=== PATIENT | male | born 1990 | race Caucasian/White ===

== ENCOUNTER 2019-04-18 08:26 | Emergency (ER) | payer SELFPAY ==
[~2019-04-18] VITALS: Ht 175.3 cm; Wt 104.6 kg
[~2019-04-18 08:26] MED LIST: HYDR-4011 PO; MELO7.5T38 PO
[2019-04-18 08:29] VITALS: Ht 175.3 cm; Wt 104.6 kg
[2019-04-18] MEDS ORDERED: ONDANSETRON 4 MG INJ IV STA (09:14)
[2019-04-18] MEDS ORDERED: FAMOTIDINE 20 MG INJ IV STA (09:14)
[2019-04-18] MEDS ORDERED: morphine 2 MG INJ IV STA ×2 (09:14→10:24)
[2019-04-18] MEDS ORDERED: SOD CHLORIDE 0.9% 1,000 ML IV STA (09:14)
[2019-04-18] MEDS ORDERED: HYDROmorphONE 0.5 MG/0.5 ML SYG IV STA ×2 (11:32→13:47)
[2019-04-18] MEDS ORDERED: METOCLOPRAMIDE 10 MG INJ IV ONE (12:00)
[2019-04-18] MEDS ORDERED: SOD CHLORIDE 0.9% 100 ML ONE (12:34)
[2019-04-18] MEDS ORDERED: IOHEXOL 300MG/ML 150 ML BTL ONE (12:34)
[2019-04-18] MEDS ORDERED: KETOROLAC 15 MG INJ IV STA (14:39)
[2019-04-18 15:26] VITALS: BP 119/69; PULSE 75; RESP 18
== END 2019-04-18 15:28 | disposition home or self-care (01) ==
LOC: E/R 08:26 → FTE 15:28
DX: N20.0 Calculus of kidney (principal)
CPT/HCPCS: 36415; 74177; 76700; 80053; 81001; 82962; 83690; 85025; 96374; 96375; 96376; 99285; J1170; J1885; J2270; J2405; J2765; J7030; Q9967

== ENCOUNTER 2019-05-18 07:28 | Observation (INO) | payer MEDICAID ==
[~2019-05-18] VITALS: Ht 188 cm; Wt 103.3 kg
[~2019-05-18 07:28] MED LIST changes: +ACET650S13 PR; +CARAS GTB; +CIPR500T4 PO; +METR-121 PO; +PANT40TA4 PO; +UDMYL PO
[2019-05-18 07:35] VITALS: Ht 188 cm; Wt 103.3 kg
[2019-05-18] MEDS ORDERED: METOCLOPRAMIDE 10 MG INJ IV STA (07:46)
[2019-05-18] MEDS ORDERED: SOD CHLORIDE 0.9% 1,000 ML IV STA (07:46)
[2019-05-18] MEDS ORDERED: KETOROLAC 30 MG INJ IV STA (07:46)
[2019-05-18] MEDS ORDERED: ONDANSETRON 4 MG INJ IV STA ×2 (08:20→09:34)
[2019-05-18] MEDS ORDERED: morphine 2 MG INJ IV STA (08:36)
[2019-05-18] MEDS ORDERED: KETOROLAC 15 MG INJ IV STA (10:16)
[2019-05-18] MEDS ORDERED: DOCUSATE SODIUM 100 MG CAP PO PRN (11:30)
[2019-05-18] MEDS ORDERED: NACL 0.9% 3 ML SYG IV SCH (11:30)
[2019-05-18] MEDS ORDERED: BISACODYL (EC) 5 MG TAB PO PRN (11:30)
[2019-05-18] MEDS ORDERED: ACETAMINOPHEN 650 MG SUPP PR PRN (11:30)
[2019-05-18] MEDS ORDERED: ONDANSETRON 4 MG INJ IV PRN ×2 (11:30→16:30)
[2019-05-18] MEDS ORDERED: MAGNESIUM HYDROXIDE 30ML CUP PO PRN (11:30)
[2019-05-18] MEDS ORDERED: ACETAMINOPHEN 325 MG TAB PO PRN (11:30)
[2019-05-18] MEDS ORDERED: morphine 2 MG INJ IV PRN (11:30)
[2019-05-18] MEDS: SOD CHLORIDE 0.9% 1,000 ML IV SCH ×2 (11:58→14:46)
[2019-05-18] MEDS: CIPROFLOXACIN 400MG/D5W 200 ML IVPB SCH ×2 (11:58→21:59)
[2019-05-18] MEDS ORDERED: KETOROLAC 30 MG INJ IV SCH (12:00)
[2019-05-18] MEDS: metroNIDAZOLE 500 MG/NS (PMX) 100 ML IVPB SCH ×2 (14:43→21:59)
[2019-05-18 14:45] VITALS: BP 141/76; PULSE 67; RESP 18
[2019-05-18] MEDS ORDERED: LORAZEPAM 2 MG INJ IV PRN (16:30)
[2019-05-18] MEDS: LIDOCAINE/MYLANTA 40 ML BTL PO SCH (18:02)
[2019-05-18 19:52] VITALS: BP 113/61; PULSE 65; RESP 20
[2019-05-18] MEDS: FAMOTIDINE 20 MG INJ IV SCH (21:59)
[2019-05-18] MEDS: KETOROLAC 30 MG INJ IV SCH (21:59)
[2019-05-18 23:58] VITALS: BP 111/62; PULSE 60; RESP 20
[2019-05-19 00:31] VITALS: BP 109/60; PULSE 58; RESP 18
[2019-05-19] MEDS: LIDOCAINE/MYLANTA 40 ML BTL PO SCH ×4 (00:35→17:17)
[2019-05-19] MEDS: KETOROLAC 30 MG INJ IV SCH ×3 (03:06→15:26)
[2019-05-19] MEDS: SOD CHLORIDE 0.9% 1,000 ML IV SCH ×3 (03:07→15:25)
[2019-05-19 04:09] VITALS: BP 128/69; PULSE 62; RESP 18
[2019-05-19] MEDS: FAMOTIDINE 20 MG INJ IV SCH (08:14)
[2019-05-19] MEDS: CIPROFLOXACIN 400MG/D5W 200 ML IVPB SCH (08:14)
[2019-05-19 08:41] VITALS: BP 120/76; PULSE 63; RESP 18
[2019-05-19] MEDS ORDERED: ENOXAPARIN 40 MG/0.4 ML SYG SC SCH (09:00)
[2019-05-19] MEDS: metroNIDAZOLE 500 MG/NS (PMX) 100 ML IVPB SCH ×2 (10:04→15:26)
[2019-05-19 11:58] VITALS: BP 136/90; PULSE 70; RESP 18
[2019-05-19] MEDS ORDERED: POTASSIUM CHLORIDE 20 MEQ POWDER FOR ORAL SOLN PO ONE (12:00)
[2019-05-19] MEDS ORDERED: SUCRALFATE (100 MG/ML) 10ML CUP GTB SCH (17:00)
[2019-05-19] MEDS ORDERED: PANTOPRAZOLE (EC) 40 MG TAB PO SCH (18:00)
== END 2019-05-19 19:50 | disposition home or self-care (01) ==
LOC: FTE 07:28 → 6WM 10:16
PROVIDERS: ADMIT Internal Medicine; ATTEND Internal Medicine
DX: R10.13 Epigastric pain (principal); K92.0 Hematemesis; N20.0 Calculus of kidney; Z72.0 Tobacco use; F12.10 Cannabis abuse, uncomplicated
CPT/HCPCS: 36415; 74176; 80053; 80061; 80307; 81001; 82340; 83036; 83605; 83690; 83735; 84100; 84105; 84443; 84560; 85025; 85610; 96374; 96375; 96376; J0744; J1650; J1885; J2270; J2405; J2765; J7030; Z7500; Z7502; Z7610; 96360; 96361; 96365; 96367; 96372; G0378